=== PATIENT | female | born 2000 | race Caucasian/White ===

== ENCOUNTER 2020-06-01 11:19 | Emergency (ER) | payer SELFPAY ==
[~2020-06-01] VITALS: Ht 170.2 cm; Wt 65.9 kg
[2020-06-01 11:30] VITALS: BP 115/58; Ht 170.2 cm; Wt 65.9 kg
[2020-06-01] MEDS ORDERED: MUPIROCIN22 GM TOPICAL (11:59)
== END 2020-06-01 12:04 | disposition home or self-care (01) ==
LOC: D.ER 11:19
DX: S80.862A Insect bite (nonvenomous), left lower leg, initial encounter (principal); W57.XXXA Bitten or stung by nonvenomous insect and other nonvenomous arthropods, initial encounter; Y93.9 Activity, unspecified; Y92.9 Unspecified place or not applicable